=== PATIENT | male | born 1985 | race Caucasian/White ===

== ENCOUNTER 2020-02-22 08:20 | Emergency (ER) | payer BC, SELFPAY ==
[2020-02-22 08:40] VITALS: BP 130/73; PULSE 69; RESP 16; TEMP 36.8; O2SAT 100
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
== END 2020-02-22 09:25 | disposition home or self-care (01) ==
PROVIDERS: Emergency Provider Nurse Practitioner; PCP Physician Assistant
DX: S91.312D Laceration without foreign body, left foot, subsequent encounter (principal); W16.112D Fall into natural body of water striking water surface causing other injury, subsequent encounter
CPT/HCPCS: 99211; G0463

== ENCOUNTER → 2020-03-23 13:07 | Outpatient (REF) | payer BC, SELFPAY | LOC: ANHLAB 13:07 | PROVIDERS: PCP Physician Assistant; Visit Provider Nurse Practitioner Family | DX: D22.5 Melanocytic nevi of trunk (principal) | CPT/HCPCS: 88305 ==

== ENCOUNTER 2022-08-25 08:54 | Emergency (ER) | payer BC, SELFPAY ==
[2022-08-25 09:15] VITALS: BP 131/68; PULSE 69; RESP 16; TEMP 36.6; O2SAT 99
--- NOTE | 2022-08-25 09:47 | ED.MALEGU ---
HPI - Male Genitourinary General Chief complaint: Urogenital-Male Stated complaint: sediment in urine, disuria, cloudy urine Time Seen by Provider: 08/25/22 09:47 Source: patient, RN notes reviewed and old records reviewed Mode of arrival: ambulatory Limitations: no limitations History of Present Illness HPI Narrative: 37-year-old male who presents to [facility] with complaints of 1 week duration of burning with urination, noted some sediment in his urine, and urine cloudy despite drinking large amounts of water. Patient states he has some intervals of some left CVA discomfort, none noted at present time on exam. 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 Patient reports that he has had previous UTI's. MD Complaint: dysuria Onset (ago): week(s) (1) Severity scale (1-10): 3 Associated symptoms: Reports other (some burning, sediment in urine, cloudy urine) Related Data Home Medications Medication Instructions Recorded Confirmed omeprazole 20 mg tablet,delayed 20 mg PO DAILY 08/25/22 08/25/22 release Allergies Allergy/AdvReac Type Severity Reaction Status Date / Time cefaclor Allergy Unknown Rash Verified 08/25/22 09:17 Review of Systems Review of Systems: CONSTITUTIONAL: Denies fever, chills, or sweats. CARDIOVASCULAR: Denies chest pain, palpitations, or edema. RESPIRATORY: Denies cough or dyspnea. GASTROINTESTINAL: Denies abdominal pain, nausea, vomiting, or diarrhea. GENITOURINARY: Reports dysuria, frequency, urgency. Denies present flank pain or hematuria. SKIN: Denies rash or itching. MUSCULOSKELETAL: reports some left sided back pain intermittently or myalgia. Denies CVA tenderness at present NEUROLOGIC: Denies headache All systems reviewed & are unremarkable except as noted in HPI and below PMFSH Past Medical History Medical History (Updated 08/25/22 @ 16:04 by Mariah Rodriguez NP) GERD (gastroesophageal reflux disease) History of ureteral obstruction Surgical History Surgical History History of ureter repair 1991 Family History Family History Father Heart disease Social History Social History Smoking status: Former smoker Alcohol intake: current Substance use: never Gender identity (if verbalized by the patient): Male Comments At time of signature, agree with nursing past medical, surgical, social and family history. There is no relevant family history pertinent to the presenting complaint Exam Narrative: GENERAL: Well-appearing, well-nourished, and in no acute distress. HEAD: Normocephalic, atraumatic. NECK: Supple. no lymphadenopathy CHEST: Clear to auscultation. No respiratory distress.SAO2 99% on room air HEART: Regular rate and rhythm. No murmur heard. Normal peripheral pulses. ABDOMEN: Soft, nontender, nondistended, normal active bowel sounds. No CVA tenderness at present EXTREMITIES: Normal range of motion. No edema. SKIN: Warm, dry, no rash. NEURO: No focal deficits. Alert and oriented x3. Course Course Emergency Course: Patient is aware of diagnosis, understands and agrees to treatment plan.? Anticipatory guidance given.? Patient agrees to follow-up as directed and is aware of reasons to seek care at the emergency department. Portions of this record may have been created with voice recognition software Level of Care: Express Care Visit Vital Signs Vital signs: Vital Signs Temperature 36.6 C 08/25/22 09:15 Pulse Rate 69 08/25/22 09:15 Respiratory Rate 16 08/25/22 09:15 Blood Pressure 131/68 08/25/22 09:15 Pulse Oximetry 99 08/25/22 09:15 Oxygen Delivery Room Air 08/25/22 09:15 Temperature 36.6 C 08/25/22 09:15 Pulse Rate 69
== END 2022-08-25 10:11 | disposition home or self-care (01) ==
PROVIDERS: Emergency Provider Registered Nurse; PCP Physician Assistant
DX: N39.0 Urinary tract infection, site not specified (principal); Z87.891 Personal history of nicotine dependence; K21.9 Gastro-esophageal reflux disease without esophagitis
CPT/HCPCS: 81003; 87086; 87147; 87181; 87186; 99213; G0463

== ENCOUNTER 2022-11-25 10:41 | Emergency (ER) | payer BC, SELFPAY ==
[2022-11-25 10:53] VITALS: BP 115/79; PULSE 60; RESP 16; TEMP 36.5; O2SAT 100
--- NOTE | 2022-11-25 11:16 | ED.MALEGU ---
HPI - Male Genitourinary General Chief complaint: Urogenital-Male Stated complaint: uti Time Seen by Provider: 11/25/22 11:16 Source: patient Mode of arrival: ambulatory Limitations: no limitations History of Present Illness HPI Narrative: [age] year male presents with complaint urinary frequency, dysuria for 2 days. Afebrile. Denies flank pain. Reports history of urinary tract infection in August. Reports similar symptoms. States that he has probably had 6 urinary tract infections over the last couple of years. As a child he reports history of ?left ureter being rerouted ?. Plans to see a urologist but has not yet made an appointment. Denies nausea vomiting diarrhea. All systems reviewed and negative except as noted above. Related Data Allergies Allergy/AdvReac Type Severity Reaction Status Date / Time cefaclor Allergy Unknown Rash Verified 11/25/22 11:09 Review of Systems Review of Systems: CONSTITUTIONAL: Denies fever, chills, or sweats. EYES: Denies visual changes, redness, or discharge. ENT: Denies rhinorrhea, congestion, sore throat, or otalgia. CARDIOVASCULAR: Denies chest pain, palpitations, or edema. RESPIRATORY: Denies cough or dyspnea. GASTROINTESTINAL: Denies abdominal pain, nausea, vomiting, or diarrhea. GENITOURINARY: Reports dysuria, frequency. Denies hematuria. Denies flank pain. SKIN: Denies rash or itching. MUSCULOSKELETAL: Denies back pain, joint pain, or myalgia. NEUROLOGIC: Denies headache, numbness, or weakness. PSYCHIATRIC: Denies anxiety or depression. All other systems reviewed are negative, except as documented in HPI. [facility] Past Medical History Medical History (Updated 11/25/22 @ 11:26 by Kellie Cardona NP) GERD (gastroesophageal reflux disease) History of ureteral obstruction Surgical History Surgical History History of ureter repair 1992 Family History Family History Father Heart disease Social History Social History Smoking status: Former smoker Alcohol intake: current Substance use: never Gender identity (if verbalized by the patient): Male Comments At time of signature, agree with nursing past medical, surgical, social and family history. There is no relevant family history pertinent to the presenting complaint. Exam Narrative: GENERAL: This is a well-nourished, well-developed patient, in no apparent distress. HEAD: normocephalic, atraumatic. EYES: PERRL. Sclera clear/white. Vision is grossly intact. EARS: External ears normal NOSE: External nose normal NECK: Neck supple, non-tender without lymphadenopathy, masses or thyromegaly. CARDIOVASCULAR: Regular rate and rhythm without murmurs, gallops, or rubs. RESPIRATORY: Clear to auscultation. Breath sounds equal bilaterally. No wheezes, rales, or rhonchi. SKIN: warm, Dry, intact with no suspicious lesions or rash, good texture and turgor. NEURO: awake, alert, and oriented to person, place and time. There were no obvious focal neurologic abnormalities. EXTREMITIES: No joint tenderness, effusion, or edema noted. BACK: . No CVA tenderness. Course Course Level of Care: Express Care Visit Vital Signs Vital signs: Vital Signs Temperature 36.5 C 11/25/22 10:53 Pulse Rate 60 11/25/22 10:53 Respiratory Rate 16 11/25/22 10:53 Blood Pressure 115/79 11/25/22 10:53 Pulse Oximetry 100 11/25/22 10:53 Temperature 36.5 C 11/25/22 10:53 Pulse Rate 60 11/25/22 10:53 Respiratory Rate 16 11/25/22 10:53 Blood Pressure 115/79 11/25/22 10:53 Pulse Oximetry 100 11/25/22 10:53 Reviewed MDM - Male Genitourinary MDM Narrative Medical decision making narrative: Patient is aware of diagnosis, understands and agrees to treatment plan. Anticipatory guidance given. Patient agrees to follow-up as d
== END 2022-11-25 11:28 | disposition home or self-care (01) ==
PROVIDERS: Emergency Provider Nurse Practitioner Family; PCP Physician Assistant
DX: N39.0 Urinary tract infection, site not specified (principal); K21.9 Gastro-esophageal reflux disease without esophagitis
CPT/HCPCS: 81003; 87086; 99213; G0463